=== PATIENT | male | born 1970 | race Caucasian/White ===

== ENCOUNTER 2021-06-14 21:04 | Observation (INO) | payer BC, MEDICARE ==
[2021-06-14] MEDS ORDERED: Lactated Ringers 1,000 ML IV ONE (21:19)
[2021-06-14] MEDS ORDERED: diphenhydrAMINE 50 MG/ML SDV IVPUSH ONE (21:19)
[2021-06-14] MEDS ORDERED: Pantoprazole 40 MG Vial IVPUSH ONE (21:19)
[2021-06-14] MEDS ORDERED: Ondansetron 4 MG/2 ML SDV IV ONE (21:19)
[2021-06-14] MEDS ORDERED: Pantoprazole 80 MG in Sodium Chloride 0.9% 100 ML IV SCH (21:30)
[2021-06-14] MEDS ORDERED: Iopamidol 612 MG/ML 100 ML Bottle IVPUSH STA (21:31)
[2021-06-14] MEDS: Sodium Chloride 0.9% 10 ML Syringe FLUSH PRN ×2 (21:39→21:49)
--- NOTE | 2021-06-14 21:43 | EDM.PDOC ---
ED HPI GENERAL MEDICAL PROBLEM - General Chief Complaint: Gastrointestinal Problem Stated Complaint: BLOODY EMESIS Time Seen by Provider: 06/14/21 21:05 Source of Information: Reports: Patient History Limitations: Reports: No Limitations - History of Present Illness INITIAL COMMENTS - FREE TEXT/NARRATIVE: Patient comes emergency department today from his father's house with concerns of coffee-ground emesis. This patient is here taking care of his father post surgery he resides in [facility]. Patient has a history of hypertension high cholesterol gastric bypass multiple other orthopedic procedures as well. This patient had a Jeffy-en-Y gastric bypass in 2001 and has had multiple struggles with it since that time. He has had multiple gastric strictures that have been dilated. He regularly vomits at home with pretty much taking any food and this has been constant since 2001. Yesterday he noticed he had some epigastric discomfort and pain. Today he had a couple emesis at home that were dark coffee-ground in appearance. They continue throughout the night. He does relate that he has a history of anemia status post gastric bypass. He has noted some dark or tarry or stools the last 2 days. He has no chest pain no shortness of breath or difficulty breathing. No weakness dizziness lightheadedness. No syncope. No fever no chills. No hematuria dysuria urinary frequency. He denies any anticoagulants antiplatelets. He also denies any NSAID usage recently. No history of cirrhosis. No history of H pylori. Has had an upper GI bleed once in the past that was bright red following a ballooning procedure done for gastric bypass. Epigastric Pain Score (Numeric/FACES): 9 - Related Data Allergies Allergy/AdvReac Type Severity Reaction Status Date / Time adhesive tape Allergy Rash Verified 06/14/21 21:05 NSAIDS (Non-Steroidal Allergy Other Verified 06/14/21 21:05 Anti-Inflamma Home Meds: Home Meds Cyanocobalamin (Vitamin B-12) [Vitamin B-12] 1 cap PO DAILY 06/14/21 [History] Folic Acid 1 mg PO DAILY 06/14/21 [History] Hydrocodone/Acetaminophen [HYDROcodone-Acetaminophen 10-325 MG] 1 tab PO TID PRN 06/14/21 [History] Levothyroxine Sodium [Levoxyl] 50 mcg PO DAILY 06/14/21 [History] Metoprolol Tartrate [Lopressor] 100 mg PO DAILY 06/14/21 [History] Omeprazole 40 mg PO DAILY 06/14/21 [History] Venlafaxine [Effexor] 225 mg PO DAILY 06/14/21 [History] Vitamin A 1 cap PO DAILY 06/14/21 [History] ED ROS GENERAL - Review of Systems Review Of Systems: Comprehensive ROS is negative, except as noted in HPI. ED EXAM, GI/ABD - Physical Exam Exam: See Below Exam Limited By: No Limitations General Appearance: Alert, WD/WN, No Apparent Distress Head: Atraumatic, Normocephalic Neck: Normal Inspection, Supple, Non-Tender Respiratory/Chest: No Respiratory Distress, Lungs Clear, Normal Breath Sounds, No Accessory Muscle Use, Chest Non-Tender Cardiovascular: Normal Peripheral Pulses, Regular Rate, Rhythm GI/Abdominal Exam: Normal Bowel Sounds, Soft, Tender (epigastric region without guarding or rebound. ). No: Guarding, Rigid, Rebound (Male) Exam: Deferred Rectal (Males) Exam: Deferred Back Exam: Normal Inspection Extremities: Normal Inspection, Normal Range of Motion Neurological: Alert, Oriented, Normal Cognition, Normal Gait, No Motor/Sensory Deficits Psychiatric: Normal Affect, Normal Mood Skin Exam: Warm, Dry, Intact, Normal Color, No Rash Lymphatic: No Adenopathy Course - Vital Signs Last Recorded V/S: Last Vital Signs Temp 99.0 F 06/14/21 21:16 Pulse 67 06/14/21 21:16 Resp 16 06/14/21 21:16 BP 168/94 H 06/14/21 21:16 Pulse Ox 100 06/14/21 21:16 - Orders/Labs/Meds Orders: Active Orders 24 hr Category Date Time Status Patient Status [ADT] Routine ADT 06/14/21 22:23 Ordered Peripheral IV Care [RC] . DIRECTED Care 06/14/21 21:19 Active Peripheral IV Care [RC] . DIRECTED Care 06/14/21 22:06 Ordered Abdomen Pelvis w Cont [CT] Stat Exams 06/14/21 21:20 Ordered CORONAVIRUS COVID-19 AG Stat Lab 06/14/21 22:13 Ordered Lactated Ringers [Ringers, Lactated] 1,000 ml Med 06/14/21 21:45 Active IV ASDIRECTED Pantoprazole [ProTONIX IV] 80 mg Med 06/14/21 21:30 Active Sodium Chloride 0.9% [Normal Saline] 100 ml IV .Continuous Potassium Chloride Riders [KCl in Water 10 MEQ/50 ML] Med 06/14/21 22:05 Ordered 10 meq Premix Bag 1 bag IV ONETIME Sodium Chloride 0.9% [Saline Flush] Med 06/14/21 21:18 Active 10 ml FLUSH ASDIRECTED PRN Sodium Chloride 0.9% [Saline Flush] Med 06/14/21 22:06 Ordered 10 ml FLUSH ASDIRECTED PRN Peripheral IV Insertion Adult [OM.PC] Stat Ot 06/14/21 21:18 Ordered Peripheral IV Insertion Adult [OM.PC] Stat Ot 06/14/21 22:06 Ordered Medication Orders Pantoprazole Sodium 80 mg/ (Sodium Chloride) 100 mls @ 10 mls/hr IV .Continuous JAN Last Admin: 06/14/21 22:20 Dose: 10 mls/hr Documented by: Lactated Ringer's (Ringers, Lactated) 1,000 mls @ 125 mls/hr IV ASDIRECTED JAN Last Admin: 06/14/21 22:22 Dose: 125 mls/hr Documented by: Potassium Chloride 10 meq/ (Premix) 50 mls @ 50 mls/hr IV ONETIME ONE Stop: 06/14/21 23:04 Last Admin: 06/14/21 22:18 Dose: 50 mls/hr Documented by: Sodium Chloride (Sodium Chloride 0.9% 10 Ml Syringe) 10 ml FLUSH ASDIRECTED PRN PRN Reason: Keep Vein Open Last Admin: 06/14/21 21:49 Dose: 10 ml Documented by: [id number] Admin: 06/14/21 21:39 Dose: 10 ml Documented by: [id number] Sodium Chloride (Sodium Chloride 0.9% 10 Ml Syringe) 10 ml FLUSH ASDIRECTED PRN PRN Reason: Keep Vein Open Labs: Laboratory Tests 06/14/21 06/14/21 06/14/21 Range/Units 21:18 21:32 21:32 WBC 6.0 (4.0-10.2) K/uL RBC 4.42 (4.33-5.41) M/uL Hgb 10.4 L (13.1-16.8) g/dL Hct 34.8 L (39.0-49.0) % MCV 78.7 L (84.0-98.0) fL MCH 23.5 L (28.2-33.3) pg MCHC 29.9 L (31.7-36.0) g/dL RDW 20.2 H (11.2-14.1) % Plt Count 476 H (150-350) K/uL Neut % (Auto) 61.8 (45.0-80.0) % Lymph % (Auto) 25.6 (10.0-50.0) % [place] % (Auto) 10.9 (2.0-14.0) % Eos % (Auto) 0.5 (0.0-5.0) % Baso % (Auto) 1.2 (0.0-2.0) % Neut # (Auto) 3.69 (1.40-7.00) K/uL Lymph # (Auto) 1.53 (0.50-3.50) K/uL [place] # (Auto) 0.65 (0.00-1.00) K/uL Eos # (Auto) 0.03 (0.00-0.50) K/uL Baso # (Auto) 0.07 (0.00-0.20) K/uL PT 10.4 (9.5-12.0) SEC INR 1.0 APTT 25.0 (24.5-32.8) SEC Sodium (136-145) mmol/L Potassium (3.5-5.1) mmol/L Chloride (98-107) mmol/L Carbon Dioxide (21.0-32.0) mmol/L Anion Gap (7-15) meq/L BUN (7-18) mg/dL Creatinine (0.51-1.17) mg/dL Est Cr Clr Drug Dosing Estimated GFR (MDRD) mL/min Glucose (70-99) mg/dL Lactic Acid (0.4-2.0) mmol/L Calcium (8.5-10.1) mg/dL Magnesium (1.8-2.4) mg/dL Iron (50-175) ug/dL TIBC (250-450) ug/dL % Saturation Total Bilirubin (0.2-1.0) mg/dL AST (15-37) U/L ALT (12-78) U/L Alkaline Phosphatase (46-116) IU/L Troponin I High Sens (<=76) ng/L Total Protein (6.4-8.2) g/dL Albumin (3.4-5.0) g/dL Specimen Type Urinvoid Urine Color Yellow Urine Appearance Clear Urine pH 7.5 (5.0-9.0) Ur Specific [place] 1.015 (1.005-1.030) Urine Protein Negative (NEGATIVE) mg/dL Urine Glucose (UA) Negative (NEGATIVE) mg/dL Urine Ketones Negative (NEGATIVE) mg/dL Urine Occult Blood Negative (NEGATIVE) Urine Nitrite Negative (NEGATIVE) Urine Bilirubin Negative (NEGATIVE) Urine Urobilinogen 0.2 (0.2-1.0) E.U./dL Ur Leukocyte Esterase Negative (NEGATIVE) Blood Type Gel Antibody Screen 06/14/21 06/14/21 06/14/21 Range/Units 21:32 21:32 21:32 WBC (4.0-10.2) K/uL RBC (4.33-5.41) M/uL Hgb (13.1-16.8) g/dL Hct (39.0-49.0) % MCV (84.0-98.0) fL MCH (28.2-33.3) pg MCHC (31.7-36.0) g/dL RDW (11.2-14.1) % Plt Count (150-350) K/uL Neut % (Auto) (45.0-80.0) % Lymph % (Auto) (10.0-50.0) % [place] % (Auto) (2.0-14.0) % Eos % (Auto) (0.0-5.0) % Baso % (Auto) (0.0-2.0) % Neut # (Auto) (1.40-7.00) K/uL Lymph # (Auto) (0.50-3.50) K/uL [place] # (Auto) (0.00-1.00) K/uL Eos # (Auto) (0.00-0.50) K/uL Baso # (Auto) (0.00-0.20) K/uL PT (9.5-12.0) SEC INR APTT (24.5-32.8) SEC Sodium 142 (136-145) mmol/L Potassium 3.0 L (3.5-5.1) mmol/L Chloride 105 (98-107) mmol/L Carbon Dioxide 30.6 (21.0-32.0) mmol/L Anion Gap 9.4 (7-15) meq/L BUN 5 L (7-18) mg/dL Creatinine 1.06 (0.51-1.17) mg/dL Est Cr Clr Drug Dosing TNP Estimated GFR (MDRD) > 60 mL/min Glucose 86 (70-99) mg/dL Lactic Acid 0.7 (0.4-2.0) mmol/L Calcium 8.2 L (8.5-10.1) mg/dL Magnesium 2.1 (1.8-2.4) mg/dL Iron (50-175) ug/dL TIBC (250-450) ug/dL % Saturation Total Bilirubin 0.5 (0.2-1.0) mg/dL AST 18 (15-37) U/L ALT 23 (12-78) U/L Alkaline Phosphatase 96 (46-116) IU/L Troponin I High Sens 13 (<=76) ng/L Total Protein 6.5 (6.4-8.2) g/dL Albumin 2.7 L (3.4-5.0) g/dL Specimen Type Urine Color Urine Appearance Urine pH (5.0-9.0) Ur Specific [place] (1.005-1.030) Urine Protein (NEGATIVE) mg/dL Urine Glucose (UA) (NEGATIVE) mg/dL Urine Ketones (NEGATIVE) mg/dL Urine Occult Blood (NEGATIVE) Urine Nitrite (NEGATIVE) Urine Bilirubin (NEGATIVE) Urine Urobilinogen (0.2-1.0) E.U./dL Ur Leukocyte Esterase (NEGATIVE) Blood Type A POSITIVE Gel Antibody Screen Negative 06/14/21 Range/Units 21:32 WBC (4.0-10.2) K/uL RBC (4.33-5.41) M/uL Hgb (13.1-16.8) g/dL Hct (39.0-49.0) % MCV (84.0-98.0) fL MCH (28.2-33.3) pg MCHC (31.7-36.0) g/dL RDW (11.2-14.1) % Plt Count (150-350) K/uL Neut % (Auto) (45.0-80.0) % Lymph % (Auto) (10.0-50.0) % [place] % (Auto) (2.0-14.0) % Eos % (Auto) (0.0-5.0) % Baso % (Auto) (0.0-2.0) % Neut # (Auto) (1.40-7.00) K/uL Lymph # (Auto) (0.50-3.50) K/uL [place] # (Auto) (0.00-1.00) K/uL Eos # (Auto) (0.00-0.50) K/uL Baso # (Auto) (0.00-0.20) K/uL PT (9.5-12.0) SEC INR APTT (24.5-32.8) SEC Sodium (136-145) mmol/L Potassium (3.5-5.1) mmol/L Chloride (98-107) mmol/L Carbon Dioxide (21.0-32.0) mmol/L Anion Gap (7-15) meq/L BUN (7-18) mg/dL Creatinine (0.51-1.17) mg/dL Est Cr Clr Drug Dosing Estimated GFR (MDRD) mL/min Glucose (70-99) mg/dL Lactic Acid (0.4-2.0) mmol/L Calcium (8.5-10.1) mg/dL Magnesium (1.8-2.4) mg/dL Iron 14 L (50-175) ug/dL TIBC 337 (250-450) ug/dL % Saturation [id number] Total Bilirubin (0.2-1.0) mg/dL AST (15-37) U/L ALT (12-78) U/L Alkaline Phosphatase (46-116) IU/L Troponin I High Sens (<=76) ng/L Total Protein (6.4-8.2) g/dL Albumin (3.4-5.0) g/dL Specimen Type Urine Color Urine Appearance Urine pH (5.0-9.0) Ur Specific [place] (1.005-1.030) Urine Protein (NEGATIVE) mg/dL Urine Glucose (UA) (NEGATIVE) mg/dL Urine Ketones (NEGATIVE) mg/dL Urine Occult Blood (NEGATIVE) Urine Nitrite (NEGATIVE) Urine Bilirubin (NEGATIVE) Urine Urobilinogen (0.2-1.0) E.U./dL Ur Leukocyte Esterase (NEGATIVE) Blood Type Gel Antibody Screen Meds: Medications Generic Name Dose Route Start Last Admin Trade Name Audieq PRN Reason Stop Dose Admin Pantoprazole Sodium 80 mg/ 100 mls @ 10 mls/hr 06/14/21 21:30 06/14/21 22:20 Sodium Chloride IV 10 mls/hr .Continuous JAN Administration Lactated Ringer's 1,000 mls @ 125 mls/hr 06/14/21 21:45 06/14/21 22:22 Ringers, Lactated IV 125 mls/hr ASDIRECTED JAN Administration Potassium Chloride 10 meq/ 50 mls @ 50 mls/hr 06/14/21 22:05 06/14/21 22:18 Premix IV 06/14/21 23:04 50 mls/hr ONETIME ONE Administration Sodium Chloride 10 ml 06/14/21 21:18 06/14/21 21:49 Sodium Chloride 0.9% 10 Ml Syringe FLUSH 10 ml ASDIRECTED PRN Administration Keep Vein Open Sodium Chloride 10 ml 06/14/21 22:06 Sodium Chloride 0.9% 10 Ml Syringe FLUSH ASDIRECTED PRN Keep Vein Open Discontinued Medications Generic Name Dose Route Start Last Admin Trade Name Jennifer PRN Reason Stop Dose Admin Diphenhydramine HCl 25 mg 06/14/21 21:19 06/14/21 21:38 Diphenhydramine 50 Mg/Ml Sdv IVPUSH 06/14/21 21:20 25 mg ONETIME ONE Administration Hydromorphone HCl 0.5 mg 06/14/21 22:25 06/14/21 22:46 Hydromorphone 0.5 Mg/0.5 Ml Syringe IV 06/14/21 22:26 0.5 mg ONETIME ONE Administration Lactated Ringer's 1,000 mls @ 1,000 mls/hr 06/14/21 21:19 06/14/21 21:47 Ringers, Lactated IV 06/14/21 22:18 1,000 mls/hr .BOLUS ONE Administration Iopamidol 100 ml 06/14/21 21:31 06/14/21 22:04 Iopamidol 612 Mg/Ml 100 Ml Bottle IVPUSH 06/14/21 21:32 100 ml ONETIME STA Administration Morphine Sulfate 4 mg 06/14/21 22:23 Morphine 4 Mg/Ml Syringe IVPUSH 06/14/21 22:24 ONETIME ONE Ondansetron HCl 4 mg 06/14/21 21:19 06/14/21 21:38 Ondansetron 4 Mg/2 Ml Sdv IV 06/14/21 21:20 4 mg ONETIME ONE Administration Pantoprazole Sodium 80 mg 06/14/21 21:19 06/14/21 21:38 Pantoprazole 40 Mg Vial IVPUSH 06/14/21 21:20 80 mg .BOLUS ONE Administration - Radiology Interpretation Free Text/Narrative:: EXAM: CT ABDOMEN PELVIS WITH CONTRAST INDICATION:ICD-10 R10.13 Epigastric pain Epigastric pain, Gastric bypass, epigastric pain, UGI bleed COMPARISON(S): None Available TECHNIQUE: The examination was performed with the intravenous administration of 100 ml of Omnipaque 350 contrast material. Oral contrast was not given. Coronal and sagittal multiplanar reformation reconstruction. FINDINGS: Lung bases: The visualized lung bases are unremarkable. The visualized portions of the heart are within normal limits. Liver: Normal liver. Gallbladder: Surgical clips identified in the gallbladder fossa represents prior cholecystectomy. Denervation atrophy of the right rectus abdominous musculature suggest open cholecystectomy has been performed. No intra or extrahepatic biliary dilatation.. Spleen: Normal spleen. Pancreas: Normal pancreas. Adrenal glands: Normal bilateral adrenal glands. Right kidney and right ureter: There is prompt nephrogram. Normal right ureter. No hydronephrosis. Left kidney and left ureter: There is prompt nephrogram. Normal left ureter. No hydronephrosis. Bowel/mesentery: Postsurgical changes reflecting Jeffy-en-Y gastric bypass. The excluded portion of the stomach appears to be decompressed. The gastric pouch is distended, contains air and fluid within measuring approximately 6.4 x 6.7 x 7.4 cm in size. Estimated volume of 165 cc. There appears to be reflux of fluid into a mildly distended distal esophagus. There is some radiodense intraluminal content identified within nondistended small bowel. This may relate to a bismuth containing medication. The colon is relatively evacuated of stool. There is mural fat noted throughout the colon, finding which can be seen in association with inflammatory bowel conditions or with chronic steroid use. Correlate clinically. Vessels: Normal abdominal aorta. Arteriosclerotic calcifications are present. Normal inferior vena cava. Mesenteric vessels are opacified as are splenic and portal veins. Lymph nodes: No lymphadenopathy. Bladder: Normal urinary bladder. Pelvic viscera: Normal. No suspicious mass. Abdominal and pelvic cavity: No ascites. No free air. Abdominal/pelvic wall: Normal abdominal wall. Osseous: Evidence for open reduction internal fixation of a left hip fracture, orthopedic hardware is present. Fusion of the left sacroiliac joint, moderately advanced arthritic changes noted about the right sacroiliac joint. Degenerative disc disease manifest is intervertebral disc space narrowing noted at L4-5 and L5-S1. IMPRESSION ABDOMEN AND PELVIS: 1. There is evidence for a Jeffy-en-Y gastric bypass procedure. The excluded portion of the stomach has a normal appearance, gastric pouch is distended with an estimated volume of 165 cc. There is some reflux of intraluminal content into a mildly distended distal esophagus. The appearance here, given clinical scenario, most likely represents a gastroenteric anastomotic stricture. 2. Coffee-ground emesis, upper GI bleeding acknowledged clinically. No ulceration apparent. 3. Evidence for prior cholecystectomy. 4. Some intramural fat identified within the ascending colon can be seen in association with chronic steroid use or in the setting of chronic inflammatory bowel condition. No acute intra-abdominal or intrapelvic inflammatory process apparent. Findings and impressions discussed with Dr. Rankin 2245 hours. Finalized by: Santi Black MD on 06/14/2021 10:45 PM CDT Patient/Procedure Information: [facility] MRN/NICO: [id number]/ Order Number: [id number] Accession Number: [id number] Ordering Provider: LORI RANKIN Authorizing Provider: LORI RANKIN - Re-Assessments/Exams Free Text/Narrative Re-Assessment/Exam: 06/14/21 21:51 IV established labs were drawn. Protonix 80mg bolus and then continuous infusion. No octreotide here for IV administration. Benadryl and zofran for nausea. 06/14/21 22:14 Blatchford score is 4, which leads to high risk bleeding. Likely to require medical intervention transfusion or endoscopy or surgery. I spoke with [facility] in [place] and they do not have any beds available should have some tomorrow. His hemoglobin is 10.4. Coags Normal. Potassium 3.0 20meq piggybacks. Normal magnesium. Dilaudid for pain. We will plan to admit the patient to the hospital for observation and hopeful transfer tomorrow for endoscopy. We will trend his hgb q6hrs during the night. Keep the protonix continuous infusion. There is no octreotide her available. The patient is comfortable with this plan and his questions answered. Departure - Departure Time of Disposition: 22:28 Disposition: Refer to Observation Clinical Impression: UGI bleed, History of Veliz's esophagus Anemia Qualifiers: Anemia type: iron deficiency Iron deficiency anemia type: other iron deficiency Qualified Code(s): D50.8 - Other iron deficiency anemias - Discharge Information Forms: ED Department Discharge Sepsis Event Note (ED) - Focused Exam Vital Signs: Vital Signs Temp Pulse Resp BP Pulse Ox 06/14/21 21:16 99.0 F 67 16 168/94 H 100 - Problem List & Annotations (1) Anemia SNOMED Code(s): 357079095 Code(s): D64.9 - ANEMIA, UNSPECIFIED Status: Acute Annotation/Comment:: Unknown baseline anemia. Hemoglobin 10.4. Will trend every 6 hours. Most likely a combination of acute blood loss versus chronic malabsorption of iron due to his gastric bypass. Qualifiers: Anemia type: iron deficiency Iron deficiency anemia type: other iron deficiency Qualified Code(s): D50.8 - Other iron deficiency anemias (2) History of Veliz's esophagus SNOMED Code(s): 19808820687739192 Code(s): Z87.19 - PERSONAL HISTORY OF OTHER DISEASES OF THE DIGESTIVE SYSTEM Status: Acute Annotation/Comment:: History of Veliz's esophagitis. No history of variceal bleeding. No history of cirrhosis. On Protonix drip for upper GI bleed. (3) UGI bleed SNOMED Code(s): 30896363 Code(s): K92.2 - GASTROINTESTINAL HEMORRHAGE, UNSPECIFIED Status: Acute Annotation/Comment:: Acute upper GI coffee-ground emesis bleed. 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 Hemodynamically stable at this time. Protonix bolus and continuous infusion. Octreotide is not available here. Waiting on bed placement in [place] for possible endoscopy. Hemoglobin every 6 hours. Vitals monitored closely. (4) Hypertension SNOMED Code(s): 09929818 Code(s): I10 - ESSENTIAL (PRIMARY) HYPERTENSION Status: Acute Annotation/Comment:: On metoprolol chronically. Acute UGI bleed. Monitor closely. Blood pressure 121/64 in the ED. continue home medication at this time. (5) Hypothyroidism SNOMED Code(s): 93405105 Code(s): E03.9 - HYPOTHYROIDISM, UNSPECIFIED Status: Acute Annotat ion/Comment:: Continue home medication stable. (6) History of gastric bypass SNOMED Code(s): 648522758 Code(s): Z98.84 - BARIATRIC SURGERY STATUS Status: Acute Annotation/Comment:: History of gastric bypass. Most likely an anastomosis type bleeding or peptic ulcer disease. Continue home vitamins. (7) Hypokalemia SNOMED Code(s): 47089148 Code(s): E87.6 - HYPOKALEMIA Status: Acute Annotation/Comment:: Potassium 3.0 in the ED. 20meq IVPB given. Recheck labs in the am. Magnesium okay. - Problem List Review Problem List Initiated/Reviewed/Updated: Yes - My Orders Last 24 Hours: My Active Orders 06/14/21 21:18 Sodium Chloride 0.9% [Saline Flush] 10 ml FLUSH ASDIRECTED PRN Peripheral IV Insertion Adult [OM.PC] Stat 06/14/21 21:19 Peripheral IV Care [RC] . DIRECTED 06/14/21 21:20 Abdomen Pelvis w Cont [CT] Stat 06/14/21 21:30 Pantoprazole [ProTONIX IV] 80 mg Sodium Chloride 0.9% [Normal Saline] 100 ml IV .Continuous 06/14/21 21:45 Lactated Ringers [Ringers, Lactated] 1,000 ml IV ASDIRECTED 06/14/21 22:05 Potassium Chloride Riders [KCl in Water 10 MEQ/50 ML] 10 meq Premix Bag 1 bag IV ONETIME 06/14/21 22:06 Peripheral IV Care [RC] . DIRECTED Sodium Chloride 0.9% [Saline Flush] 10 ml FLUSH ASDIRECTED PRN Peripheral IV Insertion Adult [OM.PC] Stat 06/14/21 22:13 CORONAVIRUS COVID-19 AG Stat 06/14/21 22:23 Patient Status [ADT] Routine - Assessment/Plan Admission H&P: Please use this note as an admission H&P Last 24 Hours: My Active Orders 06/14/21 21:18 Sodium Chloride 0.9% [Saline Flush] 10 ml FLUSH ASDIRECTED PRN Peripheral IV Insertion Adult [OM.PC] Stat 06/14/21 21:19 Peripheral IV Care [RC] . DIRECTED 06/14/21 21:20 Abdomen Pelvis w Cont [CT] Stat 06/14/21 21:30 Pantoprazole [ProTONIX IV] 80 mg Sodium Chloride 0.9% [Normal Saline] 100 ml IV .Continuous 06/14/21 21:45 Lactated Ringers [Ringers, Lactated] 1,000 ml IV ASDIRECTED 06/14/21 22:05 Potassium Chloride Riders [KCl in Water 10 MEQ/50 ML] 10 meq Premix Bag 1 bag IV ONETIME 06/14/21 22:06 Peripheral IV Care [RC] . DIRECTED Sodium Chloride 0.9% [Saline Flush] 10 ml FLUSH ASDIRECTED PRN Peripheral IV Insertion Adult [OM.PC] Stat 06/14/21 22:13 CORONAVIRUS COVID-19 AG Stat 06/14/21 22:23 Patient Status [ADT] Routine Assessment:: Assessment/plan. We will admit the patient into observation status at this time for acute upper GI bleed as well as the other diagnoses as above. I have already spoke with [facility] and hopefully tomorrow we will be able to transfer him for definitive care. Until that time we will placement to the hospital with continuous Protonix infusion. Hemoglobins every 6 hours. Clear liquid diet. He does have a mildly prolonged QT on his EKG. Nausea medication as well as pain medication. He has been typed and screened. We will also schedule some Reglan to help with gastric motility to help with the distention of the stomach. VTE: Teds Short stay no pharmacologic due to the acute bleed. Sepsis: No signs of sepsis at this time. Continue to monitor. CODE STATUS: Full code. Patient will be placed into the hospital under the above diagnosis and well his management. He will be hydrated with fluid gently throughout the night. We will repeat his labs every 6 hours to monitor his hemoglobin hematocrit. Repeat basic panel in the morning. I do not anticipate more than 24 hours of observation for this patient as definitively he needs endoscopy. Endoscopy is not available here until which is about 4 days away. His Blatchard score is 4. He does have a stricter within the gastric pouch which he has had in the past as well which precludes him even further to needing a Endoscopy.
--- NOTE | 2021-06-14 21:56 | PCM.EKG ---
#1 Interpretation EKG Date: 06/14/21 Time: 21:49 Rhythm: NSR Rate (Beats/Min): 66 [place]: Normal P-Wave: Present QRS: Normal ST-T: Normal QT: Prolonged (QT 502, QTC 526) Comparison: NA - No Prior EKG
[2021-06-14 22:00] LABS: CHLORIDE,CL 105 mmol/L (98-107); SODIUM,NA 142 mmol/L (136-145)
[2021-06-14 22:01] LABS: ANION GAP 9.4 meq/L (7-15)
[2021-06-14] MEDS ORDERED: Potassium Chloride Riders 10 MEQ in Premix Bag 1 BAG IV ONE ×2 (22:05→23:12)
[2021-06-14] MEDS ORDERED: Sodium Chloride 0.9% 10 ML Syringe FLUSH PRN (22:06)
[2021-06-14] MEDS: Lactated Ringers 1,000 ML IV SCH (22:22)
[2021-06-14] MEDS ORDERED: Morphine 4 MG/ML Syringe IVPUSH ONE (22:23)
[2021-06-14] MEDS ORDERED: HYDROmorphone 0.5 MG/0.5 ML Syringe IV ONE (22:25)
[2021-06-14] MEDS ORDERED: HYDROmorphone 1 MG/ML Syringe IVPUSH PRN (23:01)
[2021-06-14] MEDS ORDERED: diphenhydrAMINE 50 MG/ML SDV IVPUSH PRN (23:06)
[2021-06-14] MEDS: Nicotine 14 MG/24 Hr Patch TRDERM SCH (23:37)
[2021-06-14] MEDS: Metoclopramide 10 MG/2 ML SDV IVPUSH SCH (23:42)
[2021-06-15] MEDS: HYDROmorphone 0.5 MG/0.5 ML Syringe IVPUSH PRN ×5 (00:01→08:47)
[2021-06-15] MEDS: Metoclopramide 10 MG/2 ML SDV IVPUSH SCH ×3 (03:55→12:09)
[2021-06-15] MEDS: Lactated Ringers 1,000 ML IV SCH (03:59)
[2021-06-15 04:53] LABS: ANION GAP 8.5 meq/L (7-15); CHLORIDE,CL 106 mmol/L (98-107); SODIUM,NA 141 mmol/L (136-145)
[2021-06-15] MEDS ORDERED: VITAMIN A 10000 UNIT PO SCH (08:00)
[2021-06-15] MEDS ORDERED: Folic Acid 1 MG Tab PO SCH (08:00)
[2021-06-15] MEDS ORDERED: Metoprolol Succinate 50 MG Tab.ER PO SCH (08:00)
[2021-06-15] MEDS ORDERED: Levothyroxine 50 MCG Tab PO SCH (08:00)
[2021-06-15] MEDS ORDERED: Cyanocobalamin (Vitamin B12) 1,000 MCG Tab PO SCH (08:00)
[2021-06-15] MEDS ORDERED: Venlafaxine 75 MG Cap.ER PO SCH (08:00)
[2021-06-15] MEDS: Nicotine 14 MG/24 Hr Patch TRDERM SCH (08:35)
--- NOTE | 2021-06-15 11:22 | PCM.PN ---
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 he did get very nauseated following the clear liquid breakfast, but no further emesis since Reglan started. Still having intermittent epigastric pain, using prn Dilaudid. - Review of Systems General: Reports: No Symptoms HEENT: Reports: No Symptoms Pulmonary: Reports: No Symptoms Cardiovascular: Reports: No Symptoms Gastrointestinal: Reports: Abdominal Pain, Nausea Genitourinary: Reports: No Symptoms Musculoskeletal: Reports: No Symptoms Skin: Reports: No Symptoms Neurological: Reports: No Symptoms Psychiatric: Reports: No Symptoms - Patient Data Vitals - Most Recent: Last Vital Signs Temp 36.3 C 06/15/21 07:47 Pulse 54 L 06/15/21 08:34 Resp 14 06/15/21 07:47 BP 112/78 06/15/21 08:34 Pulse Ox 94 L 06/15/21 07:47 Weight - Most Recent: 102.965 kg I&O - Last 24 Hours: Intake & Output 06/14/21 06/15/21 06/15/21 22:59 06:59 14:59 Intake Total 2040 560 Output Total 1300 Balance 740 560 Lab Results Last 24 Hours: Laboratory Results - last 24 hr 06/14/21 06/14/21 06/14/21 Range/Units 21:18 21:32 21:32 WBC 6.0 (4.0-10.2) K/uL RBC 4.42 (4.33-5.41) M/uL Hgb 10.4 L (13.1-16.8) g/dL Hct 34.8 L (39.0-49.0) % MCV 78.7 L (84.0-98.0) fL MCH 23.5 L (28.2-33.3) pg MCHC 29.9 L (31.7-36.0) g/dL RDW 20.2 H (11.2-14.1) % Plt Count 476 H (150-350) K/uL Neut % (Auto) 61.8 (45.0-80.0) % Lymph % (Auto) 25.6 (10.0-50.0) % [place] % (Auto) 10.9 (2.0-14.0) % Eos % (Auto) 0.5 (0.0-5.0) % Baso % (Auto) 1.2 (0.0-2.0) % Neut # (Auto) 3.69 (1.40-7.00) K/uL Lymph # (Auto) 1.53 (0.50-3.50) K/uL [place] # (Auto) 0.65 (0.00-1.00) K/uL Eos # (Auto) 0.03 (0.00-0.50) K/uL Baso # (Auto) 0.07 (0.00-0.20) K/uL PT 10.4 (9.5-12.0) SEC INR 1.0 APTT 25.0 (24.5-32.8) SEC Sodium (136-145) mmol/L Potassium (3.5-5.1) mmol/L Chloride (98-107) mmol/L Carbon Dioxide (21.0-32.0) mmol/L Anion Gap (7-15) meq/L BUN (7-18) mg/dL Creatinine (0.51-1.17) mg/dL Est Cr Clr Drug Dosing Estimated GFR (MDRD) mL/min Glucose (70-99) mg/dL Lactic Acid (0.4-2.0) mmol/L Calcium (8.5-10.1) mg/dL Magnesium (1.8-2.4) mg/dL Iron (50-175) ug/dL TIBC (250-450) ug/dL % Saturation Total Bilirubin (0.2-1.0) mg/dL AST (15-37) U/L ALT (12-78) U/L Alkaline Phosphatase (46-116) IU/L Troponin I High Sens (<=76) ng/L Total Protein (6.4-8.2) g/dL Albumin (3.4-5.0) g/dL Specimen Type Urinvoid Urine Color Yellow Urine Appearance Clear Urine pH 7.5 (5.0-9.0) Ur Specific [place] 1.015 (1.005-1.030) Urine Protein Negative (NEGATIVE) mg/dL Urine Glucose (UA) Negative (NEGATIVE) mg/dL Urine Ketones Negative (NEGATIVE) mg/dL Urine Occult Blood Negative (NEGATIVE) Urine Nitrite Negative (NEGATIVE) Urine Bilirubin Negative (NEGATIVE) Urine Urobilinogen 0.2 (0.2-1.0) E.U./dL Ur Leukocyte Esterase Negative (NEGATIVE) SARS-CoV-2 Ag (Rapid) (NEGATIVE) Blood Type Gel Antibody Screen 06/14/21 06/14/21 06/14/21 Range/Units 21:32 21:32 21:32 WBC (4.0-10.2) K/uL RBC (4.33-5.41) M/uL Hgb (13.1-16.8) g/dL Hct (39.0-49.0) % MCV (84.0-98.0) fL MCH (28.2-33.3) pg MCHC (31.7-36.0) g/dL RDW (11.2-14.1) % Plt Count (150-350) K/uL Neut % (Auto) (45.0-80.0) % Lymph % (Auto) (10.0-50.0) % [place] % (Auto) (2.0-14.0) % Eos % (Auto) (0.0-5.0) % Baso % (Auto) (0.0-2.0) % Neut # (Auto) (1.40-7.00) K/uL Lymph # (Auto) (0.50-3.50) K/uL [place] # (Auto) (0.00-1.00) K/uL Eos # (Auto) (0.00-0.50) K/uL Baso # (Auto) (0.00-0.20) K/uL PT (9.5-12.0) SEC INR APTT (24.5-32.8) SEC Sodium 142 (136-145) mmol/L Potassium 3.0 L (3.5-5.1) mmol/L Chloride 105 (98-107) mmol/L Carbon Dioxide 30.6 (21.0-32.0) mmol/L Anion Gap 9.4 (7-15) meq/L BUN 5 L (7-18) mg/dL Creatinine 1.06 (0.51-1.17) mg/dL Est Cr Clr Drug Dosing TNP Estimated GFR (MDRD) > 60 mL/min Glucose 86 (70-99) mg/dL Lactic Acid 0.7 (0.4-2.0) mmol/L Calcium 8.2 L (8.5-10.1) mg/dL Magnesium 2.1 (1.8-2.4) mg/dL Iron (50-175) ug/dL TIBC (250-450) ug/dL % Saturation Total Bilirubin 0.5 (0.2-1.0) mg/dL AST 18 (15-37) U/L ALT 23 (12-78) U/L Alkaline Phosphatase 96 (46-116) IU/L Troponin I High Sens 13 (<=76) ng/L Total Protein 6.5 (6.4-8.2) g/dL Albumin 2.7 L (3.4-5.0) g/dL Specimen Type Urine Color Urine Appearance Urine pH (5.0-9.0) Ur Specific [place] (1.005-1.030) Urine Protein (NEGATIVE) mg/dL Urine Glucose (UA) (NEGATIVE) mg/dL Urine Ketones (NEGATIVE) mg/dL Urine Occult Blood (NEGATIVE) Urine Nitrite (NEGATIVE) Urine Bilirubin (NEGATIVE) Urine Urobilinogen (0.2-1.0) E.U./dL Ur Leukocyte Esterase (NEGATIVE) SARS-CoV-2 Ag (Rapid) (NEGATIVE) Blood Type A POSITIVE Gel Antibody Screen Negative 06/14/21 06/14/21 06/15/21 Range/Units 21:32 22:41 04:28 WBC (4.0-10.2) K/uL RBC (4.33-5.41) M/uL Hgb (13.1-16.8) g/dL Hct (39.0-49.0) % MCV (84.0-98.0) fL MCH (28.2-33.3) pg MCHC (31.7-36.0) g/dL RDW (11.2-14.1) % Plt Count (150-350) K/uL Neut % (Auto) (45.0-80.0) % Lymph % (Auto) (10.0-50.0) % [place] % (Auto) (2.0-14.0) % Eos % (Auto) (0.0-5.0) % Baso % (Auto) (0.0-2.0) % Neut # (Auto) (1.40-7.00) K/uL Lymph # (Auto) (0.50-3.50) K/uL [place] # (Auto) (0.00-1.00) K/uL Eos # (Auto) (0.00-0.50) K/uL Baso # (Auto) (0.00-0.20) K/uL PT (9.5-12.0) SEC INR APTT (24.5-32.8) SEC Sodium 141 (136-145) mmol/L Potassium 3.3 L (3.5-5.1) mmol/L Chloride 106 (98-107) mmol/L Carbon Dioxide 29.8 (21.0-32.0) mmol/L Anion Gap 8.5 (7-15) meq/L BUN 4 L (7-18) mg/dL Creatinine 0.98 (0.51-1.17) mg/dL Est Cr Clr Drug Dosing 98.52 Estimated GFR (MDRD) > 60 mL/min Glucose 87 (70-99) mg/dL Lactic Acid (0.4-2.0) mmol/L Calcium 8.0 L (8.5-10.1) mg/dL Magnesium (1.8-2.4) mg/dL Iron 14 L (50-175) ug/dL TIBC 337 (250-450) ug/dL % Saturation [id number] Total Bilirubin 0.4 (0.2-1.0) mg/dL AST 14 L (15-37) U/L ALT 19 (12-78) U/L Alkaline Phosphatase 81 (46-116) IU/L Troponin I High Sens (<=76) ng/L Total Protein 5.4 L (6.4-8.2) g/dL Albumin 2.2 L (3.4-5.0) g/dL Specimen Type Urine Color Urine Appearance Urine pH (5.0-9.0) Ur Specific [place] (1.005-1.030) Urine Protein (NEGATIVE) mg/dL Urine Glucose (UA) (NEGATIVE) mg/dL Urine Ketones (NEGATIVE) mg/dL Urine Occult Blood (NEGATIVE) Urine Nitrite (NEGATIVE) Urine Bilirubin (NEGATIVE) Urine Urobilinogen (0.2-1.0) E.U./dL Ur Leukocyte Esterase (NEGATIVE) SARS-CoV-2 Ag (Rapid) Negative (NEGATIVE) Blood Type Gel Antibody Screen 06/15/21 06/15/21 Range/Units 04:28 10:20 WBC (4.0-10.2) K/uL RBC (4.33-5.41) M/uL Hgb 9.3 L 9.9 L (13.1-16.8) g/dL Hct 31.4 L 34.2 L (39.0-49.0) % MCV (84.0-98.0) fL MCH (28.2-33.3) pg MCHC (31.7-36.0) g/dL RDW (11.2-14.1) % Plt Count (150-350) K/uL Neut % (Auto) (45.0-80.0) % Lymph % (Auto) (10.0-50.0) % [place] % (Auto) (2.0-14.0) % Eos % (Auto) (0.0-5.0) % Baso % (Auto) (0.0-2.0) % Neut # (Auto) (1.40-7.00) K/uL Lymph # (Auto) (0.50-3.50) K/uL [place] # (Auto) (0.00-1.00) K/uL Eos # (Auto) (0.00-0.50) K/uL Baso # (Auto) (0.00-0.20) K/uL PT (9.5-12.0) SEC INR APTT (24.5-32.8) SEC Sodium (136-145) mmol/L Potassium (3.5-5.1) mmol/L Chloride (98-107) mmol/L Carbon Dioxide (21.0-32.0) mmol/L Anion Gap (7-15) meq/L BUN (7-18) mg/dL Creatinine (0.51-1.17) mg/dL Est Cr Clr Drug Dosing Estimated GFR (MDRD) mL/min Glucose (70-99) mg/dL Lactic Acid (0.4-2.0) mmol/L Calcium (8.5-10.1) mg/dL Magnesium (1.8-2.4) mg/dL Iron (50-175) ug/dL TIBC (250-450) ug/dL % Saturation Total Bilirubin (0.2-1.0) mg/dL AST (15-37) U/L ALT (12-78) U/L Alkaline Phosphatase (46-116) IU/L Troponin I High Sens (<=76) ng/L Total Protein (6.4-8.2) g/dL Albumin (3.4-5.0) g/dL Specimen Type Urine Color Urine Appearance Urine pH (5.0-9.0) Ur Specific [place] (1.005-1.030) Urine Protein (NEGATIVE) mg/dL Urine Glucose (UA) (NEGATIVE) mg/dL Urine Ketones (NEGATIVE) mg/dL Urine Occult Blood (NEGATIVE) Urine Nitrite (NEGATIVE) Urine Bilirubin (NEGATIVE) Urine Urobilinogen (0.2-1.0) E.U./dL Ur Leukocyte Esterase (NEGATIVE) SARS-CoV-2 Ag (Rapid) (NEGATIVE) Blood Type Gel Antibody Screen Med Orders - Current: Current Medications Cyanocobalamin (Cyanocobalamin (Vitamin B12) 1,000 Mcg Tab) 5,000 mcg PO DAILY JAN Last Admin: 06/15/21 08:34 Dose: 5,000 mcg Documented by: Diphenhydramine HCl (Diphenhydramine 50 Mg/Ml Sdv) 25 mg IVPUSH Q6HR PRN PRN Reason: Nausea/Vomiting Last Admin: 06/15/21 06:07 Dose: 25 mg Documented by: Folic Acid (Folic Acid 1 Mg Tab) 1 mg PO DAILY JAN Last Admin: 06/15/21 08:35 Dose: 1 mg Documented by: Hydromorphone HCl (Hydromorphone 0.5 Mg/0.5 Ml Syringe) 0.5 mg IVPUSH Q2H PRN PRN Reason: Pain (severe 7-10) Last Admin: 06/15/21 08:47 Dose: 0.5 mg Documented by: Pantoprazole Sodium 80 mg/ (Sodium Chloride) 100 mls @ 10 mls/hr IV .Continuous JAN Last Admin: 06/14/21 22:20 Dose: 10 mls/hr Documented by: Levothyroxine Sodium (Levothyroxine 50 Mcg Tab) 50 mcg PO DAILY JAN Last Admin: 06/15/21 08:35 Dose: 50 mcg Documented by: Metoclopramide HCl (Metoclopramide 10 Mg/2 Ml Sdv) 5 mg IVPUSH Q4H [facility] Last Admin: 06/15/21 08:32 Dose: 5 mg Documented by: Metoprolol Succinate (Metoprolol Succinate 50 Mg Tab.Er) 100 mg PO DAILY [facility] Last Admin: 06/15/21 08:34 Dose: 100 mg Documented by: Nicotine (Nicotine 14 Mg/24 Hr Patch) 14 mg TRDERM DAILY [facility] Last Admin: 06/15/21 08:35 Dose: 14 mg Documented by: Sodium Chloride (Sodium Chloride 0.9% 10 Ml Syringe) 10 ml FLUSH ASDIRECTED PRN PRN Reason: Keep Vein Open Last Admin: 06/14/21 21:49 Dose: 10 ml Documented by: Sodium Chloride (Sodium Chloride 0.9% 10 Ml Syringe) 10 ml FLUSH ASDIRECTED PRN PRN Reason: Keep Vein Open Venlafaxine HCl (Venlafaxine 75 Mg Cap.Er) 225 mg PO DAILY [facility] Last Admin: 06/15/21 08:33 Dose: 225 mg Documented by: Discontinued Medications Diphenhydramine HCl (Diphenhydramine 50 Mg/Ml Sdv) 25 mg IVPUSH ONETIME ONE Stop: 06/14/21 21:20 Last Admin: 06/14/21 21:38 Dose: 25 mg Documented by: Hydromorphone HCl (Hydromorphone 0.5 Mg/0.5 Ml Syringe) 0.5 mg IV ONETIME ONE Stop: 06/14/21 22:26 Last Admin: 06/14/21 22:46 Dose: 0.5 mg Documented by: Hydromorphone HCl (Hydromorphone 1 Mg/Ml Syringe) 0.5 mg IVPUSH Q2H PRN PRN Reason: Pain (severe 7-10) Lactated Ringer's (Ringers, Lactated) 1,000 mls @ 1,000 mls/hr IV .BOLUS ONE Stop: 06/14/21 22:18 Last Admin: 06/14/21 21:47 Dose: 1,000 mls/hr Documented by: Lactated Ringer's (Ringers, Lactated) 1,000 mls @ 125 mls/hr IV ASDIRECTED [facility] Last Admin: 06/15/21 03:59 Dose: 125 mls/hr Documented by: Potassium Chloride 10 meq/ (Premix) 50 mls @ 50 mls/hr IV ONETIME ONE Stop: 06/14/21 23:04 Last Admin: 06/14/21 22:18 Dose: 50 mls/hr Documented by: Potassium Chloride 10 meq/ (Premix) 50 mls @ 50 mls/hr IV ONETIME ONE Stop: 06/15/21 00:11 Last Admin: 06/15/21 00:18 Dose: 50 mls/hr Documented by: Iopamidol (Iopamidol 612 Mg/Ml 100 Ml Bottle) 100 ml IVPUSH ONETIME STA Stop: 06/14/21 21:32 Last Admin: 06/14/21 22:04 Dose: 100 ml Documented by: Morphine Sulfate (Morphine 4 Mg/Ml Syringe) 4 mg IVPUSH ONETIME ONE Stop: 06/14/21 22:24 Last Admin: 06/15/21 00:28 Dose: Not Given Documented by: Non-Formulary Medication (Vitamin A [Vitamin A]) 1 cap PO DAILY JAN Ondansetron HCl (Ondansetron 4 Mg/2 Ml Sdv) 4 mg IV ONETIME ONE Stop: 06/14/21 21:20 Last Admin: 06/14/21 21:38 Dose: 4 mg Documented by: Pantoprazole Sodium (Pantoprazole 40 Mg Vial) 80 mg IVPUSH .BOLUS ONE Stop: 06/14/21 21:20 Last Admin: 06/14/21 21:38 Dose: 80 mg Documented by: - Exam General: Alert, Oriented HEENT: Pupils Equal, EOMI, Mucous Membr. Moist/[place] Neck: Supple Lungs: Clear to Auscultation, Normal Respiratory Effort Cardiovascular: Regular Rate, Regular Rhythm GI/Abdominal Exam: Normal Bowel Sounds, Soft, Tender (epigastric region) (Male) Exam: Deferred Back Exam: Normal Inspection Extremities: Normal Inspection, Normal Range of Motion, No Pedal Edema, Normal Capillary Refill Skin: Warm, Dry, Intact Neurological: No New Focal Deficit Psy/Mental Status: Alert, Normal Affect, Normal Mood - Patient Data Lab Results Last 24 hrs: Laboratory Results - last 24 hr 06/14/21 06/14/21 06/14/21 Range/Units 21:18 21:32 21:32 WBC 6.0 (4.0-10.2) K/uL RBC 4.42 (4.33-5.41) M/uL Hgb 10.4 L (13.1-16.8) g/dL Hct 34.8 L (39.0-49.0) % MCV 78.7 L (84.0-98.0) fL MCH 23.5 L (28.2-33.3) pg MCHC 29.9 L (31.7-36.0) g/dL RDW 20.2 H (11.2-14.1) % Plt Count 476 H (150-350) K/uL Neut % (Auto) 61.8 (45.0-80.0) % Lymph % (Auto) 25.6 (10.0-50.0) % [place] % (Auto) 10.9 (2.0-14.0) % Eos % (Auto) 0.5 (0.0-5.0) % Baso % (Auto) 1.2 (0.0-2.0) % Neut # (Auto) 3.69 (1.40-7.00) K/uL Lymph # (Auto) 1.53 (0.50-3.50) K/uL [place] # (Auto) 0.65 (0.00-1.00) K/uL Eos # (Auto) 0.03 (0.00-0.50) K/uL Baso # (Auto) 0.07 (0.00-0.20) K/uL PT 10.4 (9.5-12.0) SEC INR 1.0 APTT 25.0 (24.5-32.8) SEC Sodium (136-145) mmol/L Potassium (3.5-5.1) mmol/L Chloride (98-107) mmol/L Carbon Dioxide (21.0-32.0) mmol/L Anion Gap (7-15) meq/L BUN (7-18) mg/dL Creatinine (0.51-1.17) mg/dL Est Cr Clr Drug Dosing Estimated GFR (MDRD) mL/min Glucose (70-99) mg/dL Lactic Acid (0.4-2.0) mmol/L Calcium (8.5-10.1) mg/dL Magnesium (1.8-2.4) mg/dL Iron (50-175) ug/dL TIBC (250-450) ug/dL % Saturation Total Bilirubin (0.2-1.0) mg/dL AST (15-37) U/L ALT (12-78) U/L Alkaline Phosphatase (46-116) IU/L Troponin I High Sens (<=76) ng/L Total Protein (6.4-8.2) g/dL Albumin (3.4-5.0) g/dL Specimen Type Urinvoid Urine Color Yellow Urine Appearance Clear Urine pH 7.5 (5.0-9.0) Ur Specific [place] 1.015 (1.005-1.030) Urine Protein Negative (NEGATIVE) mg/dL Urine Glucose (UA) Negative (NEGATIVE) mg/dL Urine Ketones Negative (NEGATIVE) mg/dL Urine Occult Blood Negative (NEGATIVE) Urine Nitrite Negative (NEGATIVE) Urine Bilirubin Negative (NEGATIVE) Urine Urobilinogen 0.2 (0.2-1.0) E.U./dL Ur Leukocyte Esterase Negative (NEGATIVE) SARS-CoV-2 Ag (Rapid) (NEGATIVE) Blood Type Gel Antibody Screen 06/14/21 06/14/21 06/14/21 Range/Units 21:32 21:32 21:32 WBC (4.0-10.2) K/uL RBC (4.33-5.41) M/uL Hgb (13.1-16.8) g/dL Hct (39.0-49.0) % MCV (84.0-98.0) fL MCH (28.2-33.3) pg MCHC (31.7-36.0) g/dL RDW (11.2-14.1) % Plt Count (150-350) K/uL Neut % (Auto) (45.0-80.0) % Lymph % (Auto) (10.0-50.0) % [place] % (Auto) (2.0-14.0) % Eos % (Auto) (0.0-5.0) % Baso % (Auto) (0.0-2.0) % Neut # (Auto) (1.40-7.00) K/uL Lymph # (Auto) (0.50-3.50) K/uL [place] # (Auto) (0.00-1.00) K/uL Eos # (Auto) (0.00-0.50) K/uL Baso # (Auto) (0.00-0.20) K/uL PT (9.5-12.0) SEC INR APTT (24.5-32.8) SEC Sodium 142 (136-145) mmol/L Potassium 3.0 L (3.5-5.1) mmol/L Chloride 105 (98-107) mmol/L Carbon Dioxide 30.6 (21.0-32.0) mmol/L Anion Gap 9.4 (7-15) meq/L BUN 5 L (7-18) mg/dL Creatinine 1.06 (0.51-1.17) mg/dL Est Cr Clr Drug Dosing TNP Estimated GFR (MDRD) > 60 mL/min Glucose 86 (70-99) mg/dL Lactic Acid 0.7 (0.4-2.0) mmol/L Calcium 8.2 L (8.5-10.1) mg/dL Magnesium 2.1 (1.8-2.4) mg/dL Iron (50-175) ug/dL TIBC (250-450) ug/dL % Saturation Total Bilirubin 0.5 (0.2-1.0) mg/dL AST 18 (15-37) U/L ALT 23 (12-78) U/L Alkaline Phosphatase 96 (46-116) IU/L Troponin I High Sens 13 (<=76) ng/L Total Protein 6.5 (6.4-8.2) g/dL Albumin 2.7 L (3.4-5.0) g/dL Specimen Type Urine Color Urine Appearance Urine pH (5.0-9.0) Ur Specific [place] (1.005-1.030) Urine Protein (NEGATIVE) mg/dL Urine Glucose (UA) (NEGATIVE) mg/dL Urine Ketones (NEGATIVE) mg/dL Urine Occult Blood (NEGATIVE) Urine Nitrite (NEGATIVE) Urine Bilirubin (NEGATIVE) Urine Urobilinogen (0.2-1.0) E.U./dL Ur Leukocyte Esterase (NEGATIVE) SARS-CoV-2 Ag (Rapid) (NEGATIVE) Blood Type A POSITIVE Gel Antibody Screen Negative 06/14/21 06/14/21 06/15/21 Range/Units 21:32 22:41 04:28 WBC (4.0-10.2) K/uL RBC (4.33-5.41) M/uL Hgb (13.1-16.8) g/dL Hct (39.0-49.0) % MCV (84.0-98.0) fL MCH (28.2-33.3) pg MCHC (31.7-36.0) g/dL RDW (11.2-14.1) % Plt Count (150-350) K/uL Neut % (Auto) (45.0-80.0) % Lymph % (Auto) (10.0-50.0) % [place] % (Auto) (2.0-14.0) % Eos % (Auto) (0.0-5.0) % Baso % (Auto) (0.0-2.0) % Neut # (Auto) (1.40-7.00) K/uL Lymph # (Auto) (0.50-3.50) K/uL [place] # (Auto) (0.00-1.00) K/uL Eos # (Auto) (0.00-0.50) K/uL Baso # (Auto) (0.00-0.20) K/uL PT (9.5-12.0) SEC INR APTT (24.5-32.8) SEC Sodium 141 (136-145) mmol/L Potassium 3.3 L (3.5-5.1) mmol/L Chloride 106 (98-107) mmol/L Carbon Dioxide 29.8 (21.0-32.0) mmol/L Anion Gap 8.5 (7-15) meq/L BUN 4 L (7-18) mg/dL Creatinine 0.98 (0.51-1.17) mg/dL Est Cr Clr Drug Dosing 98.52 Estimated GFR (MDRD) > 60 mL/min Glucose 87 (70-99) mg/dL Lactic Acid (0.4-2.0) mmol/L Calcium 8.0 L (8.5-10.1) mg/dL Magnesium (1.8-2.4) mg/dL Iron 14 L (50-175) ug/dL TIBC 337 (250-450) ug/dL % Saturation [id number] Total Bilirubin 0.4 (0.2-1.0) mg/dL AST 14 L (15-37) U/L ALT 19 (12-78) U/L Alkaline Phosphatase 81 (46-116) IU/L Troponin I High Sens (<=76) ng/L Total Protein 5.4 L (6.4-8.2) g/dL Albumin 2.2 L (3.4-5.0) g/dL Specimen Type Urine Color Urine Appearance Urine pH (5.0-9.0) Ur Specific [place] (1.005-1.030) Urine Protein (NEGATIVE) mg/dL Urine Glucose (UA) (NEGATIVE) mg/dL Urine Ketones (NEGATIVE) mg/dL Urine Occult Blood (NEGATIVE) Urine Nitrite (NEGATIVE) Urine Bilirubin (NEGATIVE) Urine Urobilinogen (0.2-1.0) E.U./dL Ur Leukocyte Esterase (NEGATIVE) SARS-CoV-2 Ag (Rapid) Negative (NEGATIVE) Blood Type Gel Antibody Screen 06/15/21 06/15/21 Range/Units 04:28 10:20 WBC (4.0-10.2) K/uL RBC (4.33-5.41) M/uL Hgb 9.3 L 9.9 L (13.1-16.8) g/dL Hct 31.4 L 34.2 L (39.0-49.0) % MCV (84.0-98.0) fL MCH (28.2-33.3) pg MCHC (31.7-36.0) g/dL RDW (11.2-14.1) % Plt Count (150-350) K/uL Neut % (Auto) (45.0-80.0) % Lymph % (Auto) (10.0-50.0) % [place] % (Auto) (2.0-14.0) % Eos % (Auto) (0.0-5.0) % Baso % (Auto) (0.0-2.0) % Neut # (Auto) (1.40-7.00) K/uL Lymph # (Auto) (0.50-3.50) K/uL [place] # (Auto) (0.00-1.00) K/uL Eos # (Auto) (0.00-0.50) K/uL Baso # (Auto) (0.00-0.20) K/uL PT (9.5-12.0) SEC INR APTT (24.5-32.8) SEC Sodium (136-145) mmol/L Potassium (3.5-5.1) mmol/L Chloride (98-107) mmol/L Carbon Dioxide (21.0-32.0) mmol/L Anion Gap (7-15) meq/L BUN (7-18) mg/dL Creatinine (0.51-1.17) mg/dL Est Cr Clr Drug Dosing Estimated GFR (MDRD) mL/min Glucose (70-99) mg/dL Lactic Acid (0.4-2.0) mmol/L Calcium (8.5-10.1) mg/dL Magnesium (1.8-2.4) mg/dL Iron (50-175) ug/dL TIBC (250-450) ug/dL % Saturation Total Bilirubin (0.2-1.0) mg/dL AST (15-37) U/L ALT (12-78) U/L Alkaline Phosphatase (46-116) IU/L Troponin I High Sens (<=76) ng/L Total Protein (6.4-8.2) g/dL Albumin (3.4-5.0) g/dL Specimen Type Urine Color Urine Appearance Urine pH (5.0-9.0) Ur Specific [place] (1.005-1.030) Urine Protein (NEGATIVE) mg/dL Urine Glucose (UA) (NEGATIVE) mg/dL Urine Ketones (NEGATIVE) mg/dL Urine Occult Blood (NEGATIVE) Urine Nitrite (NEGATIVE) Urine Bilirubin (NEGATIVE) Urine Urobilinogen (0.2-1.0) E.U./dL Ur Leukocyte Esterase (NEGATIVE) SARS-CoV-2 Ag (Rapid) (NEGATIVE) Blood Type Gel Antibody Screen Result Diagrams: 06/15/21 10:20 06/15/21 04:28 Sepsis Event Note - Evaluation Sepsis Screening Result: No Definite Risk - Focused Exam Vital Signs: Vital Signs Temp Pulse Pulse Resp BP BP Pulse Ox 06/15/21 08:34 54 L 112/78 06/15/21 07:47 36.3 C 54 L 14 112/78 94 L 06/15/21 04:00 36.8 C 58 L 12 111/63 95 - Problem List & Annotations (1) UGI bleed SNOMED Code(s): 14228466 Code(s): K92.2 - GASTROINTESTINAL HEMORRHAGE, UNSPECIFIED Status: Acute Current Visit: No Annotation/Comment:: Acute upper GI coffee-ground emesis bleed. 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 Remains hemodynamically stable. Continue Protonix infusion. Dr Bates accepted patient for transfer to [facility], awaiting bed assignment, most likely this afternoon. Continue Reglan. (2) History of Veliz's esophagus SNOMED Code(s): 35049859319070958 Code(s): Z87.19 - PERSONAL HISTORY OF OTHER DISEASES OF THE DIGESTIVE SYSTEM Status: Acute Current Visit: No Annotation/Comment:: History of Veliz's esophagitis. No history of variceal bleeding. No history of cirrhosis. On Protonix drip for upper GI bleed. (3) History of gastric bypass SNOMED Code(s): 500472608 Code(s): Z98.84 - BARIATRIC SURGERY STATUS Status: Acute Current Visit: No Annotation/Comment:: History of gastric bypass in 2001. (4) Anemia SNOMED Code(s): 152260960 Code(s): D64.9 - ANEMIA, UNSPECIFIED Status: Acute Current Visit: No Qualifiers: Anemia type: iron deficiency Iron deficiency anemia type: other iron deficiency Qualified Code(s): D50.8 - Other iron deficiency anemias Annotation/Comment:: Unknown baseline anemia. Hemoglobin 10.4. Will trend every 6 hours. Most likely a combination of acute blood loss versus chronic malabsorption of iron due to his gastric bypass. (5) Hypokalemia SNOMED Code(s): 92582171 Code(s): E87.6 - HYPOKALEMIA Status: Acute Current Visit: No Annotation/Comment:: Potassium 3.3 this AM, continue IV replacement while awaiting transfer. - Problem List Review Problem List Initiated/Reviewed/Updated: Yes - My Orders Last 24 Hours: My Active Orders 06/15/21 11:30 Potassium Chloride Riders [KCl in Water 10 MEQ/50 ML] 10 meq Premix Bag 1 bag IV Q1H - Plan Plan:: -Transfer to [facility] when bed assigned. Plans to go POV If remains stable.
[2021-06-15] MEDS: Potassium Chloride Riders 10 MEQ in Premix Bag 1 BAG IV SCH ×2 (12:09→14:06)
[2021-06-15] MEDS ORDERED: Lactated Ringers 1,000 ML IV SCH (12:30)
== END 2021-06-15 15:10 ==
LOC: LL.ED 21:04 → LL.MS 22:45
PROVIDERS: ADMIT Nurse Practitioner Family; ATTEND Nurse Practitioner Family
DX: R11.10 Vomiting, unspecified (principal); R10.13 Epigastric pain; K92.2 Gastrointestinal hemorrhage, unspecified; D64.9 Anemia, unspecified; I10 Essential (primary) hypertension; E78.00 Pure hypercholesterolemia, unspecified; E87.6 Hypokalemia; Z20.822 Contact with and (suspected) exposure to COVID-19; Z98.84 Bariatric surgery status; Z88.8 Allergy status to other drugs, medicaments and biological substances; Z79.899 Other long term (current) drug therapy; Z87.19 Personal history of other diseases of the digestive system
CPT/HCPCS: 36415; 74177; 80053; 81003; 83540; 83550; 83605; 83735; 84484; 85014; 85018; 85025; 85610; 85730; 86850; 86900; 86901; 87426; 93005; 96365; 96366; 96368; 96375; 96376; 99285-25; A9270-GY; C9113; G0378; J1170; J1200; J2405; J2765; J3480; J7120; Q9967; U0002